=== PATIENT | male | born 2000 | race Caucasian/White ===

== ENCOUNTER 2020-06-08 15:56 | Inpatient (IN) ==
[2020-06-08 16:28] LABS: Basophils # (auto) 0.01 K/uL (0-0.2); Basophils % (auto) 0.2 %; Eosinophils # (auto) 0.17 K/uL (0-0.5); Eosinophils % (auto) 3.4 %; Hematocrit (blood only) 46.2 % (42-52); Hemoglobin 15.9 g/dL (14.0-18.0); Immature Granulocytes # (auto) 0.01 K/uL (0.00-0.02); Immature Granulocytes % (auto) 0.2 %; Lymphocytes # (auto) 1.76 K/uL (1.2-3.4); Lymphocytes % (auto) 35.3 %; Mean Corpuscular Hemoglobin 29.9 pg (25-34); Mean Corpuscular Hgb Conc 34.4 g/dL (32-36); Mean Corpuscular Volume 86.8 fL (80-100); Mean Platelet Volume 9.7 fL (7.4-10.4); Monocytes # (auto) 0.35 K/uL (0.11-0.59); Neutrophils # (auto) 2.68 K/uL (1.4-6.5); Neutrophils % (auto) 53.9 %; Platelet Count 224 K/uL (130-400); RDW Coefficient of Variation 12.4 % (11.5-14.5); RDW Standard Deviation 39.6 fL (36.4-46.3); Red Blood Count 5.32 M/uL (4.7-6.1); White Blood Count 4.98 K/uL (4.8-10.8)
[2020-06-08 16:45] LABS: Alanine Aminotransferase 29 U/L (12-78); Albumin Level 4.5 gm/dl (3.4-5.0); Aspartate Aminotransferase 18 U/L (15-37); BUN Creatinine Ratio 13.8 (10-20); Blood Urea Nitrogen 15 mg/dl (7-18); Calcium 9.5 mg/dl (8.5-10.1); Carbon Dioxide 30 mmol/L (21-32); Chloride 106 mmol/L (98-107); Creatinine Clr Calc Pharmacy 106.4 ml/min; Est GFR (African American) 110.6; Est GFR (Non-African American) 95.5; Glucose 88 mg/dl (70-99); Potassium 3.7 mmol/L (3.5-5.1); Sodium 139 mmol/L (136-145)
[2020-06-08 16:50] LABS: Albumin Globulin Ratio 1.3 (0.9-2); Alkaline Phosphatase 65 U/L (45-117); Bilirubin,Total 0.9 mg/dl (0.2-1); Globulin 3.5 gm/dl (2.5-4.0); Troponin I < 0.015 ng/ml (0-0.045)
--- NOTE | 2020-06-08 16:51 | XRay Report ---
XR chest 2V PA/lateral CLINICAL HISTORY: Reported out patient pneumothorax COMPARISON STUDY: No previous studies for comparison. FINDINGS: Note is made of a moderate left pneumothorax. Superior pleural separation measures 3.9 cm. Cardiac size is normal. Mediastinal contours are normal. No airspace opacities are identified. There is no right pneumothorax. Pulmonary vascularity is normal. No rib fractures are identified. IMPRESSION: Moderate sized left pneumothorax. ACT 112: Negative or not required by law. Electronically signed by: Maninder Hernandez M.D. 06/08/2020 4:50 PM
--- NOTE | 2020-06-08 20:59 | XRay Report ---
XR chest 2V PA/lateral HISTORY: 19 years-old Male Repeat for Pneumothorax follow-up study in a patient with left-sided pneu mothorax COMPARISON: Chest radiograph of same day at 4:31 PM TECHNIQUE: PA and lateral views of the chest FINDINGS: Cardiomediastinal and hilar silhouettes are within normal limits. Lungs are clear. No pleural effusio n, overt pulmonary edema or airspace consolidation typical for pneumonia. Left-sided moderate pneumot horax redemonstrated, pleural separation of 4.3 cm at the apex, previously 3.9 cm. Bones appear gross ly intact. IMPRESSION: Mildly increased size of the moderate left pneumothorax. ACT 112: Negative or not required by law. The above report was generated using voice recognition software. It may contain grammatical, syntax o r spelling errors. Electronically signed by: Morris Zheng M.D. 06/08/2020 8:58 PM
[2020-06-08] MEDS ORDERED: XYLOCAINE 1%/SOD BICARB 20 ML VIAL INFIL ONE (22:02)
[2020-06-08] MEDS ORDERED: MoRPHine SULFATE 2 MG/ML CARP IV STA (22:49)
[2020-06-08] MEDS ORDERED: ONDANSETRON INJ 2 MG/ML 2 ML VIAL IV STA (22:49)
[2020-06-08] MEDS ORDERED: KETOROLAC TROMETHAMINE 15 MG/ML VIAL IV STA (22:50)
--- NOTE | 2020-06-08 22:58 | Emergency Department Note ---
ED Visit Note Patient was seen and examined with Pankaj Dixon PA-C. His initial chest x-ray showed a pneumothorax on the left side. The patient's blood work and ECG was unremarkable. Consultation was made with Dr. Pringle of pulmonary medicine. He advised the nonrebreather treatment to continue and repeat chest x-ray. If it was stable he could be discharged if it increased then he may need intervention. After the patient was observed on the nonrebreather repeat chest x-ray was performed. There was slight increase in the chest x-ray results of the pneumo thorax. This was confirmed by radiology. Dr. Pringle was contacted again and he asked for the patient to have a pigtail catheter tube thoracostomy performed and patient admitted to medicine. He would consult on the patient and manage the pneumothorax. The patient and I had a discussion about the procedure. He was consented in the usual fashion. He did sign a written consent. See the procedure note below. Patient underwent the pigtail catheter drainage of the pneumothorax. Postprocedure chest x-ray showed improvement. The patient was given morphine, Toradol and Zofran for symptom control as he had some discomfort upon reexpansion. Consultation was made with Dr. Joce Khoury of the hospitalist service. The patient was admitted for further management. PROCEDURE: (Done by me) Pigtail catheter thoracostomy Indication: Pneumothorax Written consent was obtained after the risks and benefits were explained, including but not limited to cardiac/liver/lung injury, bleeding, scarring, infection, pain, and bone/joint/nerve damage. At this time, the risks of the procedure are less than the risks of NOT performing the procedure. A time out was taken and the correct patient and site identified. The patient was prepped and draped in the standard surgical fashion. 1% lidocaine without epinephrine was infused over the left fifth intercostal space into the subcutaneous tissue. An introducer needle was carefully advanced through the skin, subcutaneous tissue, and into the pleural space. Bubbles were noted in the syringe. No blood was aspirated. The guidewire was placed uneventfully. Skin was gently dilated in the standard fashion. Using Seldinger technique the pigtail catheter was inserted towards the superior/posterior portion of the pleural space. 4-0 nylon suture was used to secure the catheter. An occlusive dressing was then placed and the thoracostomy tube was hooked to the Pleur-evac suction at 20 cm. The patient tolerated the procedure well without complications. A postoperative x-ray was then performed which showed the catheter in the chest cavity. It is entering in the superior fashion however does curve medially. No hemothorax noted. Near resolution of the pneumothorax is achieved. There is a sliver of an apical pneumothorax present. No complications. The patient was pleased with the treatment. .
[2020-06-08] MEDS ORDERED: MoRPHine SULFATE 4 MG/ML 1 ML CARP\\VIAL IV STA (23:01)
--- NOTE | 2020-06-08 23:07 | XRay Report ---
SINGLE VIEW CHEST CLINICAL HISTORY: Chest tube placement. FINDINGS: An AP, portable, upright chest radiograph is compared to study dated 06/08/2020. The cardiom ediastinal silhouette is unremarkable. A pigtail chest tube has been placed in the left lower lung. T here is a trace residual left apical pneumothorax. This has significantly decreased in size from toda y's earlier examination. No airspace consolidation or large pleural effusion is identified. Linear at electasis is noted in the left lower lung. The bony thorax is grossly intact. IMPRESSION: 1. A left-sided chest tube has been placed as above. 2. There is only trace residual left apical pneumothorax. This has significantly decreased in size fr om today's earlier examination. ACT 112: Negative or not required by law. Electronically signed by: Iglesia Perez M.D. 06/08/2020 11:06 PM
--- NOTE | 2020-06-08 23:17 | History & Physical Report ---
Date of Service June 08, 2020 Assessment & Plan (1) Spontaneous pneumothorax: Tucker is a 19yo male with a PMHx of eosinophilic esophagitis who presented with chest pain with movement and was found to have a left sided pneumothorax. Spontaneous Pneumothorax -Pt presented with persistent chest pain with movement of 4 days duration; no associated SOB -Presented to [facility] who sent him over to the ED after chest XR -Chest XR in ED showed a moderate L sided pneumothorax -On RA (except on rebreather mask while chest tube was being placed), EKG with NSR, HR 71, qtc 406 -Chest tube placed in the ED, f/u XR showed trace residual apical pneumothorax, pt hemodynamically stable -will admit to med/surg with tele -pulm consult placed for AM -morphine 4mg q2h PRN for pain, PO tylenol 1000mg q8h also ordered (hold home ibuprofen) Eosinophilic esophagitis -Not on medication for this at home -PRN Tums and Maalox ordered for heartburn FEN/GI: Regular diet DVT prophylaxis: Ambulation CODE STATUS: Full code Dispo: Med/Surg with tele (2) Eosinophilic esophagitis: History of Present Illness Primary Care Provider: [facility] Tucker is a 19yo male with a PMHx of eosinophilic esophagitis who presented with chest pain with movement and was found to have a left sided pneumothorax. Tucker states that 4 days ago he moved "weirdly" on the couch and noted some chest pain whenever he moved. He had no associated SOB. Eventually the pain got intolerable and he presented to [facility] today where he was worked up with a chest XR and sent to the ED. PMHx: Eosinophilic esophagitis Fam Hx: mother alive and well, Father alive with Hx of bicuspid valve and pacemaker placement SH: None Allergies: NKDA SH: Never smoker, does not vape, no recreational drug use. Drinks about 5 beers a week. 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 Originally from the [place] area. Allergies Allergy/AdvReac Type Severity Reaction Status Date / Time No Known Allergies Allergy Unverified 06/08/20 17:39 Home Medications Home Medications Medication Instructions Recorded Confirmed Type ibuprofen 200 mg PO Q6H PRN 06/08/20 06/08/20 History Past Med/Surg History Medical History (Updated 06/10/20 @ 00:03 by Background Daemon) Chest tube in place No chronic diseases present Surgical History (Updated 06/08/20 @ 23:24 by Pankaj Dixon PA-C) No significant past surgical history Social History Smoking Status: Never smoker Second Hand Exposure: No; Hx Alcohol Use: Yes Alcohol type: beer Hx Substance Use: No Preferred Language: Mosotho Beliefs That Will Affect Care: None Current Living Situation: Other Current Living Situation Comment: lives with roommates Feels Safe at Home: Yes Assistive Devices: None Review of Systems Constitutional: no fever, no chills, no sweats and no fatigue Eyes: no worsening vision Ear, Nose, Mouth, Throat: no nasal congestion and no sore throat Respiratory: no cough, no dyspnea and no wheezing Cardiovascular: + chest pain and + chest pain with activity; no dyspnea, no palpitations and no edema Gastrointestinal: no abdominal pain, no nausea and no vomiting Genitourinary: no dysuria and no hematuria Musculoskeletal: no back pain and no body aches Integumentary: no rash Neurologic: no headache(s) and no confusion Psychiatric: no confusion Physical Exam Physical Exam: General: Alert, oriented. No acute distress, sitting up in bed texting on his phone. Skin: Noted bandage covering left chest Psych: Appropriate mood and affect Neuro: No gross deficits HEENT: NC/AT Chest: tender to palpation where test tube was inserted CV: RRR, Normal s1, s2. No murmurs appreciated Resp: Breath sounds clear bilaterally but decreased, no increased effort of breathing. Abdomen: Soft, nontender, nondistended. Extremities: No edema in lower extremities bilaterally. Results & Data Results & Data ([facility]) Vital Signs (Past 12 Hours) Vital Signs Temp Pulse Pulse Resp BP BP Pulse Ox 06/08/20 22:30 88 24 147/88 H 100 06/08/20 22:05 80 17 128/60 100 06/08/20 20:30 80 18 133/78 100 06/08/20 20:00 71 18 128/70 100 06/08/20 19:30 68 22 124/73 100 06/08/20 19:00 66 18 131/72 100 06/08/20 18:30 78 19 134/69 100 06/08/20 18:00 65 19 137/80 100 06/08/20 17:30 65 22 133/82 100 06/08/20 17:29 66 66 16 140/86 140/86 100 06/08/20 16:25 99 06/08/20 16:10 72 19 123/70 100 06/08/20 16:00 36.5 C 79 20 136/84 99 Supervising Physician Co-Signing Physician Notes Attending addendum: I have physically seen this patient, have supervised the medical residents activities, and agree with the H&P unless as otherwise noted. Assessment and Plan: Spontaneous left-sided pneumothorax/status post placement of chest tube in ED. Admission to the hospital overnight for observation per claims representative Dr. Pringle consulted by ED. Patient hemodynamically stable with good pulse ox on room air. Tylenol 1000 mg p.o. every 8 hours as needed mild pain or temperature. Morphine sulfate 4 mg IV every 2 hours as needed severe pain Remainder of orders and notations as noted Resident Activity Tracking Resident Involvement: Resident Care Provided Care Provided: Adult Hospital Medicine
--- NOTE | 2020-06-08 23:27 | Emergency Department Note ---
History of Present Illness General Chief complaint: Chest/Rib Injury Stated complaint: COLLAPSED LUNG Time Seen by Provider: 06/08/20 16:07 History of Present Illness Maximum Pain Intensity: 7 This is a 19-year-old male presenting to the emergency department for evaluation of chest pain and atypical outpatient chest x-ray. Evidently the patient had some mild chest pain earlier this week while getting off the couch. The patient does not recall any distinct injury or trauma otherwise. He is usually healthy and does not take any medication on a regular basis. The patient exercises often and is a member of the [employer] at [facility]. He did go to [facility] today as his symptoms are slowly worsening, and evidently had chest x-ray showing possible pneumothorax. The patient was referred to the emergency department for further evaluation. Upon arrival the patient is not having distinct chest pain or significant shortness of breath at the moment. He has not had fevers or chills. No sick exposures. He rates his current discomfort a 7/10. Home Medications Home Medications Medication Instructions Recorded Confirmed Type ibuprofen 200 mg PO Q6H PRN 06/08/20 06/08/20 History Allergies Allergy/AdvReac Type Severity Reaction Status Date / Time No Known Allergies Allergy Unverified 06/08/20 17:39 Past Med/Surg History Medical History (Updated 06/08/20 @ 23:46 by Pankaj Dixon PA-C) No chronic diseases present Surgical History (Updated 06/08/20 @ 23:24 by Pankaj Dixon PA-C) No significant past surgical history Social History Smoking Status: Never smoker Preferred Language: Yi Feels Safe at Home: Yes Review of Systems A total of 10 systems reviewed and were otherwise negative Physical Exam Vital Signs Vital Signs - 24 hr 06/08/20 16:00 06/08/20 16:10 06/08/20 16:25 Temperature 36.5 C Temperature Source Oral Pulse Rate 79 72 Pulse Rate [Apical] Pulse Rate from SpO2 Sensor 73 Respiratory Rate 20 19 Respiratory Effort / Characteristics Respiratory Depth Blood Pressure 136/84 123/70 Blood Pressure [Right Arm] Blood Pressure Mean 101 87 Blood Pressure Mean [Right Arm] Blood Pressure Position Sitting Pulse Oximetry 99 100 99 Oxygen Delivery Method Room Air Room Air Room Air Oxygen Flow Rate Sepsis Recent Fever Within 48 Hours No Sepsis New/Unexplained Change in Mental Status N/A Sepsis Action Taken by Nursing No Action Required 06/08/20 17:29 06/08/20 17:30 06/08/20 18:00 Temperature Temperature Source Pulse Rate 66 65 65 Pulse Rate [Apical] 66 Pulse Rate from SpO2 Sensor 64 66 Respiratory Rate 16 22 19 Respiratory Effort / Characteristics Non-Labored Respiratory Depth Normal Blood Pressure 140/86 133/82 137/80 Blood Pressure [Right Arm] 140/86 Blood Pressure Mean 100 97 92 Blood Pressure Mean [Right Arm] 104 Blood Pressure Position Pulse Oximetry 100 100 100 Oxygen Delivery Method Non-rebreather Non-rebreather Oxygen Flow Rate 15 15 Sepsis Recent Fever Within 48 Hours Sepsis New/Unexplained Change in Mental Status Sepsis Action Taken by Nursing 06/08/20 18:30 06/08/20 19:00 06/08/20 19:30 Temperature Temperature Source Pulse Rate 78 66 68 Pulse Rate [Apical] Pulse Rate from SpO2 Sensor 81 66 67 Respiratory Rate 19 18 22 Respiratory Effort / Characteristics Respiratory Depth Blood Pressure 134/69 131/72 124/73 Blood Pressure [Right Arm] Blood Pressure Mean 89 92 85 Blood Pressure Mean [Right Arm] Blood Pressure Position Pulse Oximetry 100 100 100 Oxygen Delivery Method Oxygen Flow Rate Sepsis Recent Fever Within 48 Hours Sepsis New/Unexplained Change in Mental Status Sepsis Action Taken by Nursing 06/08/20 20:00 06/08/20 20:30 06/08/20 22:05 Temperature Temperature Source Pulse Rate 71 80 80 Pulse Rate [Apical] Pulse Rate from SpO2 Sensor 68 81 Respiratory Rate 18 18 17 Respiratory Effort / Characteristics Respiratory Depth Blood Pressure 128/70 133/78 128/60 Blood Pressure [Right Arm] Blood Pressure Mean 88 88 74 Blood Pressure Mean [Right Arm] Blood Pressure Position Pulse Oximetry 100 100 100 Oxygen Delivery Method Oxygen Flow Rate Sepsis Recent Fever Within 48 Hours Sepsis New/Unexplained Change in Mental Status Sepsis Action Taken by Nursing 06/08/20 22:30 Temperature Temperature Source Pulse Rate 88 Pulse Rate [Apical] Pulse Rate from SpO2 Sensor 88 Respiratory Rate 24 Respiratory Effort / Characteristics Respiratory Depth Blood Pressure 147/88 H Blood Pressure [Right Arm] Blood Pressure Mean 108 Blood Pressure Mean [Right Arm] Blood Pressure Position Pulse Oximetry 100 Oxygen Delivery Method Oxygen Flow Rate Sepsis Recent Fever Within 48 Hours Sepsis New/Unexplained Change in Mental Status Sepsis Action Taken by Nursing VITALS: Vitals are noted on the nurse's note and reviewed by myself. Vital signs stable. GENERAL: Well-developed, well-nourished, white male, who is in no acute distress and resting comfortably. Patient is cooperative with the examination. HEAD: Normocephalic atraumatic. EARS: External ear normal. External auditory canals clear, tympanic membranes pearly conway without erythema or effusion bilaterally. EYES: Pupils equal round and reactive to light and accommodation. Conjunctivae without injection, sclerae without icterus. Extraocular movements intact. NOSE: Patent, turbinates without inflammation or discharge. MOUTH: Mucous membranes moist. Tonsils are not enlarged. Pharynx without erythema, blood, or exudate. Uvula midline. Airway patent. NECK: Supple without nuchal rigidity. No lymphadenopathy. No thyromegaly. Cervical spine is nontender. HEART: Regular rate and rhythm without murmurs gallops or rubs. LUNGS: Clear to auscultation bilaterally without wheezes, rales or rhonchi. There may be slight decreased breath sounds in the left apices. No retractions or accessory muscle use. MUSCULOSKELETAL: No muscle atrophy, erythema, or edema noted. Full range of motion in all extremities. NEURO: Patient was alert and oriented to person place and time. CN II through XII grossly intact. Course Administered Medications Discontinued Medications Ketorolac Tromethamine (Ketorolac Tromethamine 15 Mg/Ml Vial) 15 mg IV NOW STA Stop: 06/08/20 22:51 Last Admin: 06/08/20 23:19 Dose: 15 mg Documented by: [id number] Lidocaine HCl (Xylocaine 1%/Sod Bicarb 20 Ml Vial) Confirm Administered Dose 20 ml INFIL .STK-MED ONE Stop: 06/08/20 22:03 Last Admin: 06/08/20 22:32 Dose: 20 ml Documented by: [id number] Morphine Sulfate (Morphine Sulfate 2 Mg/Ml Carp) 2 mg IV NOW STA Stop: 06/08/20 22:50 Last Admin: 06/08/20 22:55 Dose: 2 mg Documented by: [id number] Morphine Sulfate (Morphine Sulfate 4 Mg/Ml 1 Ml Carp\Vial) 4 mg IV NOW STA Stop: 06/08/20 23:02 Last Admin: 06/08/20 23:19 Dose: 4 mg Documented by: [id number] Ondansetron HCl (Ondansetron Inj 2 Mg/Ml 2 Ml Vial) 4 mg IV NOW STA Stop: 06/08/20 22:50 Last Admin: 06/08/20 22:55 Dose: 4 mg Documented by: [id number] Medical Decision Making Differential Diagnosis Differential diagnosis includes, but is not limited to: Myocardial infarction, dysrhythmia, pericarditis, pneumothorax, aortic aneurysm/dissection, DVT/PE, anx iety, GERD, PUD, electrolyte imbalance, thyroid disorder, pneumonia, bronchitis, pancreatitis, and others Laboratory Data Result diagrams: 06/08/20 16:16 06/08/20 16:16 Lab Results 06/08/20 06/08/20 Range/Units 16:16 16:16 WBC 4.98 (4.8-10.8) K/uL RBC 5.32 (4.7-6.1) M/uL Hgb 15.9 (14.0-18.0) g/dL Hct 46.2 (42-52) % MCV 86.8 (80-100) fL MCH 29.9 (25-34) pg MCHC 34.4 (32-36) g/dL RDW Std Deviation 39.6 (36.4-46.3) fL RDW Coeff of Sugey 12.4 (11.5-14.5) % Plt Count 224 (130-400) K/uL MPV 9.7 (7.4-10.4) fL Immature Gran % (Auto) 0.2 % Neut % (Auto) 53.9 % Lymph % (Auto) 35.3 % Whiteside % (Auto) 7.0 % Eos % (Auto) 3.4 % Baso % (Auto) 0.2 % Neut # (Auto) 2.68 (1.4-6.5) K/uL Lymph # (Auto) 1.76 (1.2-3.4) K/uL Whiteside # (Auto) 0.35 (0.11-0.59) K/uL Eos # (Auto) 0.17 (0-0.5) K/uL Baso # (Auto) 0.01 (0-0.2) K/uL Immature Gran # (Auto) 0.01 (0.00-0.02) K/uL Sodium 139 (136-145) mmol/L Potassium 3.7 (3.5-5.1) mmol/L Chloride 106 (98-107) mmol/L Carbon Dioxide 30 (21-32) mmol/L Anion Gap 4.0 (3-11) BUN 15 (7-18) mg/dl Creatinine 1.10 (0.6-1.4) mg/dl Est Cr Clr Drug Dosing 106.4 ml/min Est GFR ( Amer) 110.6 Est GFR (Non-Af Amer) 95.5 BUN/Creatinine Ratio 13.8 (10-20) Glucose 88 (70-99) mg/dl Calcium 9.5 (8.5-10.1) mg/dl Total Bilirubin 0.9 (0.2-1) mg/dl AST 18 (15-37) U/L ALT 29 (12-78) U/L Alkaline Phosphatase 65 (45-117) U/L Troponin I < 0.015 (0-0.045) ng/ml Total Protein 8.0 (6.4-8.2) gm/dl Albumin 4.5 (3.4-5.0) gm/dl Globulin 3.5 (2.5-4.0) gm/dl Albumin/Globulin Ratio 1.3 (0.9-2) Imaging Data Radiologist's Impression: XR chest 2V PA/lateral CLINICAL HISTORY: Reported out patient pneumothorax COMPARISON STUDY: No previous studies for comparison. FINDINGS: Note is made of a moderate left pneumothorax. Superior pleural separation measures 3.9 cm. Cardiac size is normal. Mediastinal contours are normal. No airspace opacities are identified. There is no right pneumothorax. Pulmonary vascularity is normal. No rib fractures are identified. IMPRESSION: Moderate sized left pneumothorax. XR chest 2V PA/lateral HISTORY: 19 years-old Male Repeat for Pneumothorax follow-up study in a patient with left-sided pneumothorax COMPARISON: Chest radiograph of same day at 4:31 PM TECHNIQUE: PA and lateral views of the chest FINDINGS: Cardiomediastinal and hilar silhouettes are within normal limits. Lungs are clear. No pleural effusion, overt pulmonary edema or airspace consolidation typ ical for pneumonia. Left-sided moderate pneumothorax redemonstrated, pleural separation of 4.3 cm at the apex, previously 3.9 cm. Bones appear grossly intact. IMPRESSION: Mildly increased size of the moderate left pneumothorax. SINGLE VIEW CHEST CLINICAL HISTORY: Chest tube placement. FINDINGS: An AP, portable, upright chest radiograph is compared to study dated 06/08/2020. The cardiomediastinal silhouette is unremarkable. A pigtail chest tube has been placed in the left lower lung. There is a trace residual left apical pneumothorax. This has significantly decreased in size from today's earlier examination. No airspace consolidation or large pleural effusion is identified. Linear atelectasis is noted in the left lower lung. The bony thorax is grossly intact. IMPRESSION: 1. A left-sided chest tube has been placed as above. 2. There is only trace residual left apical pneumothorax. This has significantly decreased in size from today's earlier examination. ECG Data Attestation: I personally reviewed and interpreted this ECG as follows: Indication: + chest pain Additional Comments: Normal sinus rhythm @71bpm No acute ST elevation or ectopy Normal ECG No previous ECGs available MDM Narrative Physical exam and history were performed. Nursing notes, EMR, and Medication List were personally reviewed. Patient appears to have chest discomfort with outpatient x-ray concerning for pneumothorax. Upon arrival the patient was immediately evaluated in room A3. IV access was established and labs were obtained. Chest x-ray was performed. An order was placed for continuous cardiac monitoring. The monitor shows a rate of 88 with normal sinus rhythm. The patient's blood work is as above and was reviewed. He does not have a significantly elevated white blood cell count, gross anemia, bandemia, or significant electrolyte imbalance. Troponin x1 is negative. X-rays were reviewed by myself, radiology, and my attending, Dr. Severino, who remained closely involved in patient care and decision making. Initial x-ray does show a 3.9 cm left apical pneumothorax. The patient was placed on high flow oxygen, and the case was discussed with the on-call interventional leather staker, Dr. Pringle. Dr Pringle was kind enough to provide options of care for this patient, and utilizing shared decision making with the patient, we did elect to observe him in the emergency department for several hours, and repeat chest x-ray to determine if the pneumothorax is stable versus last stable. Observation note: Indication: Acute pneumothorax Family/Medical/Social History as above. Patient was first seen at 16:00 for the above diagnosis. In order to prevent unnecessary admission, observation was required to determine stability of the pneumothorax, as well as identify any additional medical needs should the pneumothorax became unstable. Observation time began at 17:15. Upon re-evaluation following it was revealed the patient had expanding pneumothorax despite high flow oxygen and monitoring. Observation time ended at 20:45. Patient was discussed with the hospitalist team for admission. The patient remained in stable condition for several hours of ER observation. R epeat chest x-ray unfortunately shows an expanding pneumothorax from 39 mm to 43 mm. An extensive discussion was had between myself, the patient, and Dr. Severino. I did offer to speak with the patient's family, but he indicates that he is staying in touch with him by text message. Because of his expanding pneumothorax at the recommendation previously from Dr Pringle, we did elect to place a pigtail chest tube. This procedure was performed by Dr. Severino. Please see his dictation for specifics regarding the procedure. Ultimately the patient tolerated this well, and repeat chest x-ray shows significant improvement of the pneumothorax. The patient did have a small amount of irritation following chest tube placement in the chest wall itself, and was given small doses of IV morphine, IV Zofran, and IV Toradol for comfort. Overall the patient does not appear well for discharge home. The case was discussed with the on-call hospitalist, Dr. Khoury, who agreed to evaluate the patient here in the ER. Dr. Pringle has indicated that he will follow the patient through the weekend. Please see the hospitalist dictation for further patient course, plan, and disposition. The chart was completed utilizing [employer] Speech Voice Recognition Software. Grammatical errors, random word insertions, pronoun errors, and incomplete sentences are an occasional consequence of this system due to software limitations, ambient noise, and hardware issues. Any formal questions or concerns about the content, text, or information contained within the body of this dictation should be directly addressed to the provider for clarification. . Impression & Plan Spontaneous pneumothorax, Chest tube in place Discharge Plan Visit Data Chief Complaint: Chest/Rib Injury Stated Complaint: COLLAPSED LUNG ED Provider: Sherman Severino ED Midlevel Provider: Pankaj Dixon Discharge Problem: Spontaneous pneumothorax, Chest tube in place Patient Disposition: Admitted As Inpatient Forms Stand Alone Forms: My [employer] Prescriptions Prescriptions: No Action ibuprofen 200 mg Tablet 200 mg PO Q6H PRN (Reason: Pain) RF: 0 Referrals Referrals: [facility] [Primary Care Provider] -
[2020-06-09] MEDS ORDERED: ACETAMINOPHEN 500 MG TAB PO PRN (02:29)
[2020-06-09] MEDS ORDERED: ONDANSETRON INJ 2 MG/ML 2 ML VIAL IV PRN (02:29)
[2020-06-09] MEDS ORDERED: POLYETHYLENE (MIRALAX) 17 GM PACK PO PRN (02:29)
[2020-06-09] MEDS ORDERED: ALUMINUM/MAGNESIUM/SIMETH (MAALOX MAX) 30 ML UDC PO PRN (02:29)
[2020-06-09] MEDS ORDERED: CALCIUM CARBONATE 500 MG CHEWABLE TAB PO PRN (02:29)
[2020-06-09] MEDS ORDERED: MoRPHine SULFATE 4 MG/ML 1 ML CARP\\VIAL IV PRN (02:29)
[2020-06-09 06:08] LABS: Basophils # (auto) 0.01 K/uL (0-0.2); Basophils % (auto) 0.1 %; Eosinophils # (auto) 0.16 K/uL (0-0.5); Eosinophils % (auto) 2.2 %; Hematocrit (blood only) 45.2 % (42-52); Hemoglobin 15.8 g/dL (14.0-18.0); Immature Granulocytes # (auto) 0.01 K/uL (0.00-0.02); Immature Granulocytes % (auto) 0.1 %; Lymphocytes % (auto) 27.6 %; Mean Corpuscular Hemoglobin 30.4 pg (25-34); Mean Corpuscular Volume 87.1 fL (80-100); Mean Platelet Volume 9.6 fL (7.4-10.4); Monocytes # (auto) 0.56 K/uL (0.11-0.59); Monocytes % (auto) 7.7 %; Neutrophils % (auto) 62.3 %; Platelet Count 222 K/uL (130-400); RDW Coefficient of Variation 12.4 % (11.5-14.5); RDW Standard Deviation 39.7 fL (36.4-46.3); Red Blood Count 5.19 M/uL (4.7-6.1); White Blood Count 7.24 K/uL (4.8-10.8)
[2020-06-09 06:35] LABS: BUN Creatinine Ratio 14.6 (10-20); Creatinine Clr Calc Pharmacy 103.2 ml/min; Est GFR (African American) 108.3; Est GFR (Non-African American) 93.4; Potassium 3.8 mmol/L (3.5-5.1)
--- NOTE | 2020-06-09 07:50 | Pulmonary Consultation ---
Date of Consultation June 09, 2020 Assessment & Plan (1) Spontaneous pneumothorax: Impression: 19-year-old male without prior pulmonary history with spontaneous pneumothorax. He does have eosinophilic esophagitis which raises the possibility of concurrent asthma. He has been treated with a small bore pigtail tube with mostly expansion of the lung. There is no air leak this morning but the tube is not on suction. Recommendations: 1. Spontaneous pneumothorax: We will clamp the chest tube and do follow-up chest x-ray in 3 hours. If the lung remains up, will discontinue the tube. The patient was advised that he should not fly or participate in any activities involved in changing in barometric pressure for at least 6 to 8 weeks. I recommended that he follow-up with pulmonary in about 4 weeks and consider PFTs. The patient is potentially interested in a career and flying. We did briefly discuss pleurodesis however I would like to see how he does for now. 2. Pain control per primary service. 3. I will see him back after his x-ray later this morning and potentially re move his chest tube. Once the chest tube is out patient can likely be dismissed to the hospital with pulmonary follow-up in about 1 month (2) Chest tube in place: History of Present Illness Attending Physician: Beth Espinal DO History of Present Illness Asked by hospitalist to assist in management this patient with spontaneous pneumothorax. Patient seen and examined. Discussed with emergency room staff. EMR reviewed. Patient is a 19-year-old male without prior medical history who states that last Thursday he was sitting on the couch and spontaneously felt a pop in his left chest. He did not seek medical attention at that time. He does have a history of eosinophilic esophagitis. Due to the increased chest pain the patient was eventually presented to the [facility] where chest x-ray was done. This demonstrated pneumothorax and he was referred to the [facility] emergency room. He was hemodynamically stable there. He was placed on high flow oxygen and observed. A follow-up chest x-ray several hours later demonstrated some progression of the pneumothorax and a pigtail catheter was placed by the ER staff and the patient was admitted to the floor. Overnight he is done well. He does have some mild pain in his chest. He denies any history of cigarette use or vaping or E cigarettes. He has no family history of lung disease that he is aware of. He is a student at [employer]. 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 He denies any ill contacts. No history of trauma. No antecedent cough. No URI symptoms. No wheezing Allergies Allergy/AdvReac Type Severity Reaction Status Date / Time No Known Allergies Allergy Unverified 06/08/20 17:39 Home Medications Home Medications Medication Instructions Recorded Confirmed Type ibuprofen 200 mg PO Q6H PRN 06/08/20 06/08/20 History Patient History Medical History (Updated 06/09/20 @ 00:18 by Miranda Nur MD) No chronic diseases present Surgical History (Updated 06/08/20 @ 23:24 by Pankaj Dixon PA-C) No significant past surgical history Social History Smoking Status: Never smoker Second Hand Exposure: No; Do You Dip or Chew Tobacco: No; Hx Alcohol Use: Yes Alcohol type: beer Hx Substance Use: No Preferred Language: Taiwanese Beliefs That Will Affect Care: None Current Living Situation: Other Current Living Situation Comment: lives with roommates Feels Safe at Home: Yes Safety Concerns: Feels Safe At This Time Assistive Devices: None Review of Systems Review of Systems: All systems reviewed & are unremarkable except as noted in HPI & below Physical Exam Constitutional: WD/WN, vitals as above Neck: trachea midline, no thyromegaly Respiratory: normal respiratory effort, lungs clear to auscultation Cardiovascular: RRR, no murmur, no edema Chest (Breasts): Additional Comments: Pigtail catheter is in place. The tube is on waterseal. There is no air leak. Gastrointestinal (Abdomen): normal bowel sounds, soft, nontender, no hepatosplenomegaly Musculoskeletal: Extremities: extremities normal to inspection Skin: no rashes, warm and dry Neurologic: Nonfocal exam Lymphatic: no cervical lymphadenopathy Results & Data Results & Data ([facility]) Vital Signs (Past 12 Hours) Vital Signs Temp Pulse Pulse Resp BP BP Pulse Ox 06/09/20 07:16 59 L 06/09/20 02:37 36.8 C 60 73 18 142/71 H 97 06/09/20 02:28 36.8 C 73 19 142/71 H 97 06/09/20 01:30 66 22 123/66 97 06/09/20 01:00 67 22 141/84 H 98 06/09/20 00:30 71 24 133/91 97 06/09/20 00:00 74 19 135/87 98 06/08/20 23:30 69 23 134/83 97 06/08/20 23:00 71 24 137/75 99 06/08/20 22:30 88 24 147/88 H 100 06/08/20 22:05 80 17 128/60 100 06/08/20 20:30 80 18 133/78 100 06/08/20 20:00 71 18 128/70 100 Laboratory Results 06/09/20 05:34 06/09/20 05:34 Diagnostic Findings Initial chest x-ray was reviewed which revealed about a 3 to 4 cm left apical pneumothorax. Most recent film from 10:00 last night demonstrated pigtail catheter within the mid lung zone with only a small residual apical pneumothorax. No films yet this morning PG Care Time/CCT Total # of Minutes Spent Total Time Spent with Patient: Total time spent is greater than 50% in coordination of care (as documented) at patient's floor/unit and/or counseling patient: Coding Level of Care Code 58098 Inpt Consult Level 3 Diagnoses Spontaneous pneumothorax J93.[address] Z96.89
--- NOTE | 2020-06-09 11:12 | XRay Report ---
XR chest 1V portable CLINICAL HISTORY: ptx, tube clamped COMPARISON STUDY: Chest radiograph June 08, 2020 at 10:56 PM. FINDINGS: Left pleural pigtail catheter is in place. A trace left apical pneumothorax with superior p leural separation of 2 mm has slightly decreased in size since prior exam. There is no consolidation. Pulmonary vascularity is normal. Cardiac size is normal. Mediastinal contours are unremarkable. IMPRESSION: Slight decrease in size of a trace left apical pneumothorax. ACT 112: Negative or not required by law. Electronically signed by: Maninder Hernandez M.D. 06/09/2020 11:10 AM
--- NOTE | 2020-06-09 12:03 | Electrocardiogram Report ---
Test Reason : Blood Pressure : / mmHG Vent. Rate : 071 BPM Atrial Rate : 071 BPM P-R Int : 126 ms QRS Dur : 104 ms QT Int : 374 ms P-R-T Axes : 059 082 037 degrees QTc Int : 406 ms Poor data quality, interpretation may be adversely affected Normal sinus rhythm RSR' or QR pattern in V1 suggests right ventricular conduction delay Otherwise Normal ECG No previous ECGs available Confirmed by Yossi Paez ([id number]) on 06/09/2020 12:02:52 PM Referred By: REFERRED SELF Confirmed By:Yossi Paez
--- NOTE | 2020-06-09 12:49 | Med Student Discharge Summary ---
Date of Service June 09, 2020 Admission HPI Per Admitting Provider Tucker is a 19yo male with a PMHx of eosinophilic esophagitis who presented with chest pain with movement and was found to have a left sided pneumothorax. Tucker states that 4 days ago he moved "weirdly" on the couch and noted some chest pain whenever he moved. He had no associated SOB. Eventually the pain got intolerable and he presented to [facility] today where he was worked up with a chest XR and sent to the ED. PMHx: Eosinophilic esophagitis Fam Hx: mother alive and well, Father alive with Hx of bicuspid valve and pacemaker placement SH: None Allergies: NKDA SH: Never smoker, does not vape, no recreational drug use. Drinks about 5 beers a week. 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 Originally from the [facility]. Admission Exam (Per Admitting) Constitutional GENERAL: Well-developed, well-nourished, white male, who is in no acute distress and resting comfortably. Patient is cooperative with the examination. HEAD: Normocephalic atraumatic. EARS: External ear normal. External auditory canals clear, tympanic membranes pearly conway without erythema or effusion bilaterally. EYES: Pupils equal round and reactive to light and accommodation. Conjunctivae without injection, sclerae without icterus. Extraocular movements intact. NOSE: Patent, turbinates without inflammation or discharge. MOUTH: Mucous membranes moist. Tonsils are not enlarged. Pharynx without erythema, blood, or exudate. Uvula midline. Airway patent. NECK: Supple without nuchal rigidity. No lymphadenopathy. No thyromegaly. C ervical spine is nontender. HEART: Regular rate and rhythm without murmurs gallops or rubs. LUNGS: Clear to auscultation bilaterally without wheezes, rales or rhonchi. There may be slight decreased breath sounds in the left apices. No retractions or accessory muscle use. MUSCULOSKELETAL: No muscle atrophy, erythema, or edema noted. Full range of motion in all extremities. NEURO: Patient was alert and oriented to person place and time. CN II through XII grossly intact. Discharge Data Consultations 06/08/20 22:16 ED Decision to Admit Stat 06/09/20 02:29 Consult Pulmonology Routine Hospital Course (1) Spontaneous pneumothorax: Tucker Sosa is a 19 y/o M who was admitted yesterday for management of spontaneous pneumothorax. He had been sitting on his couch when he had sudden left sided chest pain, and CXR done at [facility] revealed a L spontaneous pneumothorax. He was brought to our hospital and L spontaneous pneumothorax was confirmed on CXR. He did not endorse any smoking, recreational drug use, vape use, or previous history of lung disease. Chest tube was placed, and resolution of PTX was monitored with serial CXR. He endorsed some chest pain on deep inspiration, but did not report any shortness of breath, and continued to maintain normal saturation on room air. This morning, pulmonology cleared him for discharge given that the PTX had significantly decreased in size on CXR this morning. He was not having any s ymptoms of respiratory distress, and his chest tube was removed without issue. Discharge Plan Discharge Items Patient Disposition: Home - Self-Care Reason For Visit: PNEUMOTHORAX Discharge Diagnosis: Pneumothorax Activity: Per Instructions section Non-emergency contact: Primary Care Provider and Home Health Aide Caregiver Call non-emergency contact if: you have any medication questions Follow-up/Referrals: Iglesia Pringle MD [Physician] - (4 weeks) [facility] [Primary Care Provider] - Diet: Regular Addtl Attending Provider Instructions: You were seen and admitted for concerns of a pneumothorax, which means air outside of your lung in your chest cavity. You temporarily had a chest tube in place which removed some of the air from this space. This chest tube was removed after the small remaining amount had stabilized. The bandage that was placed over the wound can be removed in two days. In the next couple weeks you need to slowly re-introduce yourself to your regular physical activity, and you should avoid flying or being in any environments that would change the atmospheric pressure of your surroundings for the next 8 weeks. In four weeks you will have follow-up in the Pulmonology offices for re-evaluation as you have continued to heal. If you have not heard about this follow-up in the coming week, please reach out to the [facility] Pulmonology clinic at [phone] to ensure this appointment has been made. Pending Studies at Discharge: No Stand-Alone Forms: My [employer], Smoking Cessation Medications and DC Order Prescriptions: Continued ibuprofen 200 mg Tablet 200 mg PO Q6H PRN (Reason: Pain) RF: 0 Discharge Orders: Discharge Order (Routine); Ordered 06/09/20 Ordered By: Augie Haley Admission Data Admit Date/Time: 06/08/20 23:09 Attending Provider: Beth Espinal Admit Provider: Miranda Nur Primary Care Provider: [facility] Other Providers: Joce Khoury ; Iglesia Pringle Other Interventions: Discharge Summary Assessment (RN) Last Done: 06/09/20 11:35 Supervising Attestation Patient seen and examined with PGY-1 Dr. 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 Pigtail catheter placed in the ED with good re-expansion of pneumothorax. Repeat CXR this morning shows continued improvement in his pneumothorax. Did not require supplemental O2. Chest tube was removed at the bedside by PGY-2 Dr. Haley. Patient tolerated this well. nursing notes, labs, imaging and vital signs reviewed. On exam, he is breathing comfortably on room air. Lung sounds are symmetric with good air movement throughout. Heart with regular rate and rhythm. No murmur, rub or gallop. Abdomen soft and nontender. Extermities without edema. 1. Spontaneous pneumothorax. Improved. Chest tube. He will follow up with pulm in 4 weeks. Discussed avoiding activities such as flying or diving (changes in barometric pressure) for the first few weeks. Also discussed gradual return to physical activity. 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 He is aware that if he has recurrent spontaneous penumo, this may be a permanent disqualification. 2. Eosinophilic esophagiitis. Not on medications. Not symptomatic. Dispo: discharge home today. Will need disc with images in the event that he is home in [place] at the time of pulmonology follow up and he ends up following up with someone near [place]. I personally spent 35 minutes discharge planning for this patient.
--- NOTE | 2020-06-10 05:43 | Billing Data ---
Date of Service June 10, 2020 Coding Level of Care Code 01617 OBS Care - Level 3
== END 2020-06-09 13:47 | disposition home or self-care (01) | DRG 201 ==
LOC: ED 15:56 → SUATTDRO 23:09 → 2N 23:09